=== PATIENT | male | born 1955 | race Caucasian/White ===

== ENCOUNTER 2018-02-24 10:04 | Inpatient (IN) | payer OTHER ==
[2018-02-24] MEDS ORDERED: IPRATROPIUM/ALBUTEROL (0.5MG/3MG) NEB INH ONE (10:38)
[2018-02-24] MEDS ORDERED: METHYLPREDNISOLONE PF 125MG/VIAL IVP ONE (10:38)
--- NOTE | 2018-02-24 11:42 | Emergency Department Record ---
History of Present Illness - General Chief Complaint: Shortness of breath Stated Complaint: SHORT OF BREATH Time Seen by Provider: 02/24/18 10:30 Source: Patient Mode of Arrival: Wheelchair Limitations: No limitations - History of Present Illness Initial Comments: pt is sob. he was recently hospitalized in [facility] for pnumonia. he got out and drove 14hrs home. he now has increasing sob. [facility] he denies new leg pain MD Complaint: Shortness of breath Onset/Timin -: Days(s) Severity: Mild Consistency: Constant Improves With: Nothing Worsens With: Nothing Known History Of: COPD, Recurrent pneumonia Context: Recent travel Associated Symptoms: Cough, Sputum production Treatments Prior to Arrival: None - Related Data Home Oxygen Therapy: No Allergies Allergy/AdvReac Type Severity Reaction Status Date / Time Penicillins Allergy Intermediate HIVES Unverified 10/08/16 13:29 ropinirole HCl [From Requip] AdvReac Intermediate too sedated Unverified 13:29 Travel Screening - Travel/Exposure Within Last 30 Days Have you traveled within the last 30 days?: No Review of Systems Reviewed: No additional complaints except as noted below Constitutional: Reports: As per HPI. Denies: Chills, Fever, Malaise, Night sweats, Weakness, Weight change Eyes: Reports: As per HPI. Denies: Eye discharge, Eye pain, Photophobia, Vision change ENT: Reports: As per HPI. Denies: Congestion, Dental pain, Ear pain, Epistaxis , Hearing loss, Throat pain Respiratory: Reports: As per HPI, Cough, Dyspnea, Wheezes. Denies: Hemoptysis, Stridor Cardiovascular: Reports: As per HPI. Denies: Arrhythmia, Chest pain, Dyspnea on exertion, Edema, Murmurs, Orthopnea, Palpitations, Paroxysmal nocturnal dyspnea, Rheumatic Fever, Syncope Endocrine: Reports: As per HPI. Denies: Fatigue, Heat or cold intolerance, Polydipsia, Polyuria Gastrointestinal: Reports: As per HPI. Denies: Abdominal pain, Constipation, Diarrhea, Hematemesis, Hematochezia, Melena, Nausea, Vomiting Genitourinary: Reports: As per HPI. Denies: Dysuria, Frequency, Hematuria, Incontinence, Retention, Testicular pain, Testicular mass, Urgency Musculoskeletal: Reports: As per HPI. Denies: Arthralgia, Back pain, Gout, Joint swelling, Myalgia, Neck pain Skin: Reports: As per HPI. Denies: Bruising, Change in color, Change in hair/ nails, Lesions, Pruritus, Rash Neurological: Reports: As per HPI. Denies: Abnormal gait, Confusion, Headache, Numbness, Paresthesias, Seizure, Tingling, Tremors, Vertigo, Weakness Psychiatric: Reports: As per HPI. Denies: Anxiety, Auditory hallucinations, Depression, Homicidal thoughts, Suicidal thoughts, Visual hallucinations Hematological/Lymphatic: Reports: As per HPI. Denies: Anemia, Blood Clots, Easy bleeding, Easy bruising, Swollen glands Past Medical History - SOCIAL HISTORY Smoking Status: Current every day smoker - RESPIRATORY Hx Respiratory Disorders: Yes Hx Bronchitis: Yes (yearly) Hx COPD: Yes Hx Pneumonia: Yes (yearly) Hx Sleep Apnea: Yes Hx of CPAP: No - CARDIOVASCULAR Hx Cardio Disorders: Yes Hx Cardiac Cath: Yes (2008, 2014) Hx Edema: Yes (BLE) Hx Heart Attack: Yes (found after stent placed when in for a stress test "pt. was unaware") Hx Hypertension: Yes Hx Vascular Disease: Yes (CELLULITIS) Hx Coronary Stent: Yes (2008) - NEURO Hx Neuro Disorders: Yes Hx Neuropathy: Yes (Bilateral feet) - GI Hx GI Disorders: Yes Hx Reflux: Yes (NO LONGER AN ISSUE) - Hx Genitourinary Disorders: Yes Hx Kidney Stones: Yes (in the past) Hx Prostate Problems: Yes (?BPH) - ENDOCRINE Hx Endocrine Disorders: Yes Hx Thyroid Disease: Yes - MUSCULOSKELETAL Hx Musculoskeletal Disorders: No - PSYCH Hx Psych Problems: Yes Hx Anxiety: Yes Hx Depression: Yes - HEMATOLOGY/ONCOLOGY Hx Hematology/Oncology Disorders: No Hx Clotting Problems: Yes (PLAVIX) Family Medical History Any Significant Family History?: Yes Hx Cancer: Brother/Sister Hx Diabetes: Mother Hx Heart Disease: Father *Heart Comment: of ID @ 62 Physical Exam - General General Appearance: Alert, Oriented x3, Cooperative, Mild distress - Head Head exam: Normal inspection - Eye Eye exam: Normal appearance, PERRL, EOMI Pupils: Normal accommodation - ENT ENT exam: Normal exam, Mucous membranes moist, Normal external ear exam, Normal orophraynx Ear exam: Normal external inspection. negative: External canal tenderness Nasal Exam: Normal inspection. negative: Discharge, Sinus tenderness Mouth exam: Normal external inspection, Tongue normal Teeth exam: Normal inspection. negative: Dental caries Throat exam: Normal inspection. negative: Tonsillar erythema, Tonsillar exudate - Neck Neck exam: Normal inspection, Full ROM. negative: Tenderness - Respiratory Respiratory exam: Decreased breath sounds, Respiratory distress, Wheezes - Cardiovascular Cardiovascular Exam: Normal rhythm, Normal heart sounds, Tachycardia - GI/Abdominal GI/Abdominal exam: Soft, Normal bowel sounds. negative: Tenderness - Rectal Rectal exam: Deferred - exam: Deferred - Extremities Extremities exam: Normal inspection, Full ROM, Normal capillary refill. negative: Tenderness - Back Back exam: Reports: Normal inspection, Full ROM. Denies: Muscle spasm, Rash noted, Tenderness - Neurological Neurological exam: Alert, CN II-XII intact, Normal gait, Oriented X3 - Psychiatric Psychiatric exam: Normal affect, Normal mood - Skin Skin exam: Dry, Intact, Normal color, Warm Course Vital Signs 02/24/18 02/24/18 10:08 11:03 Temperature 99.8 F H Pulse Rate 100 H Pulse Rate [ 94 H Pulse Ox Probe] Respiratory 22 20 Rate Blood Pressure 98/64 Blood Pressure 93/63 [Left Arm] Pulse Ox [address] - Reevaluation(s) Reevaluation #1: 02/24/18 12:36 d/w dr anderson Reevaluation #2: 02/24/18 12:42 pt left dept to let dog be picked up. he went without his oxygen [unknown to me ]. when he came back in his sats were 79-80 Disposition Disposition: Admit Clinical Impression: Acute exacerbation of COPD with asthma, Hypoxia Pneumonia Qualifiers: Pneumonia type: due to unspecified organism Laterality: bilateral Lung location : lower lobe of lung Qualified Code(s): J18.1 - Lobar pneumonia, unspecified organism Disposition: Still a Patient at [facility] Decision to Admit: Admit from ER Decision to Admit Date: 02/24/18 Decision to Admit Time: 12:36 Forms: Patient Portal Access Quality - Quality Measures Quality Measures: N/A - Blood Pressure Screening Does Patient Have Any of the Following: No Blood Pressure Classification: Normal BP Reading Systolic Measurement: 98 Diastolic Measurement: 64 Screening for High Blood Pressure: < Normal BP, F/U Not Required > [[id number]]
--- NOTE | 2018-02-24 13:42 | History & Physical ---
History of Present Illness - Date of Service Date of Service for History & Physical: 02/26/18 - History of Present Illness History of Present Illness: Ruben Pennington is a 63 y/o male transferred from PCP office to ED for hypoxia, fever and productive cough. He is a current every day smoker. About a month ago was treated for COPD exacerbation in [place] with Rocephin and Azithromycin, oxygen therapy, breathing treatments. Respiratory culture at that time grew strep pneumoniae. Had echo for hx CHF (results not available) BNP at that time was 297, troponin <0.01, CXR opacity left lung base questionable infiltrate. PMX includes COPD ( does not use home O2), MO While in the ED was hypotensive, afebrile (was febrile while at PCP office just prior to admit) with WBC 17.5. CO2 33, BNP 516, d-dimer was 0.57 CXR performed prior to transfer to ED with no acute infiltrates, there are bilateral increased densities to both lung bases R>L, similar to previous CXR. Will admit for IV antibiotics, oxygen supplementation, respiratory services. 02/24/18 1530- sitting at the side of bed comfortably, no obvious respiratory distress. Upon further questioning patient admits to having a CPAP at home but does not use because he removes it in his sleep. 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 He is unsure of why this is. Admits he is still smoking but has cut down to 1/2 ppd, is interested in quitting. Does not feel like he completely recovered from his hospitalization in [place] a month ago stating he was just anxious about returning home and "rushed it". States he lives in an environment he feels has a lot of mold. Mop Handle Assembler is Dr Brice, saw him last about a year ago. Reports since starting Entresto his blood pressure has been running low, 100's/40's. Has been asymptomatic at this level. States he is following a 64 oz fluid restriction at home and will gain weight readily if he takes in too much fluid in a day. Follows with a [facility] supervisor and has seen him about a year ago. Is hospitalized approx twice a year for COPD related complications. Travel Screening - Travel/Exposure Within Last 30 Days Have you traveled within the last 30 days?: No Review of Systems Constitutional: Reports: As per HPI. Denies: Chills, Fever, Malaise, Night sweats, Weakness, Weight change Eyes: Reports: As per HPI. Denies: Eye discharge, Eye pain, Photophobia, Vision change ENT: Reports: As per HPI. Denies: Congestion, Dental pain, Ear pain, Epistaxis , Hearing loss, Throat pain Respiratory: Reports: As per HPI, Cough, Dyspnea, Wheezes. Denies: Hemoptysis, Stridor Cardiovascular: Reports: As per HPI. Denies: Arrhythmia, Chest pain, Dyspnea on exertion, Edema, Murmurs, Orthopnea, Palpitations, Paroxysmal nocturnal dyspnea, Rheumatic Fever, Syncope Endocrine: Reports: As per HPI. Denies: Fatigue, Heat or cold intolerance, Polydipsia, Polyuria Gastrointestinal: Reports: As per HPI. Denies: Abdominal pain, Constipation, Diarrhea, Hematemesis, Hematochezia, Melena, Nausea, Vomiting Genitourinary: Reports: As per HPI. Denies: Dysuria, Frequency, Hematuria, Incontinence, Retention, Testicular pain, Testicular mass, Urgency Musculoskeletal: Reports: As per HPI. Denies: Arthralgia, Back pain, Gout, Joint swelling, Myalgia, Neck pain Skin: Reports: As per HPI. Denies: Bruising, Change in color, Change in hair/ nails, Lesions, Pruritus, Rash Neurological: Reports: As per HPI. Denies: Abnormal gait, Confusion, Headache, Numbness, Paresthesias, Seizure, Tingling, Tremors, Vertigo, Weakness Psychiatric: Reports: As per HPI. Denies: Anxiety, Auditory hallucinations, Depression, Homicidal thoughts, Suicidal thoughts, Visual hallucinations Hematological/Lymphatic: Reports: As per HPI. Denies: Anemia, Blood Clots, Easy bleeding, Easy bruising, Swollen glands Past Medical History - SOCIAL HISTORY Smoking Status: Current every day smoker - RESPIRATORY Hx Respiratory Disorders: Yes Hx Bronchitis: Yes (yearly) Hx COPD: Yes Hx Pneumonia: Yes (yearly) Hx Sleep Apnea: Yes Hx of CPAP: No - CARDIOVASCULAR Hx Cardio Disorders: Yes Hx Cardiac Cath: Yes (2008, 2014) Hx Edema: Yes (BLE) Hx Heart Attack: Yes (found after stent placed when in for a stress test "pt. was unaware") Hx Hypertension: Yes Hx Vascular Disease: Yes (CELLULITIS) Hx Coronary Stent: Yes (2008) - NEURO Hx Neuro Disorders: Yes Hx Neuropathy: Yes (Bilateral feet) - GI Hx GI Disorders: Yes Hx Reflux: Yes (NO LONGER AN ISSUE) - Hx Genitourinary Disorders: Yes Hx Kidney Stones: Yes (in the past) Hx Prostate Problems: Yes (?BPH) - ENDOCRINE Hx Endocrine Disorders: Yes Hx Thyroid Disease: Yes - MUSCULOSKELETAL Hx Musculoskeletal Disorders: No - PSYCH Hx Psych Problems: Yes Hx Anxiety: Yes Hx Depression: Yes - HEMATOLOGY/ONCOLOGY Hx Hematology/Oncology Disorders: No Hx Clotting Problems: Yes (PLAVIX) Family Medical History Any Significant Family History?: Yes Hx Cancer: Brother/Sister Hx Diabetes: Mother Hx Heart Disease: Father *Heart Comment: of [place] @ 62 H&P Meds/Allergies - Allergies Allergies: Allergies Allergy/AdvReac Type Severity Reaction Status Date / Time Penicillins Allergy Intermediate HIVES Unverified 10/08/16 13:29 ropinirole HCl [From Requip] AdvReac Intermediate too sedated Unverified 13:29 - Home Medications Home Medications Medication Instructions Recorded Confirmed Last Taken Albuterol Sulfate 0.083% [Neb] 2.5 mg INH TID PRN 02/24/18 02/24/18 Unknown Brovana 15 mcg INH BID 02/24/18 02/24/18 Unknown Nitroglycerin 0.4MG [Nitrostat 0.4 mg SL Q5MIN PRN 02/24/18 02/24/18 Unknown 0.4MG] Sacubitril/Valsartan [Entresto 97 1 each PO BID 02/24/18 02/24/18 Unknown mg-103 mg Tablet] Tiotropium Lutz [Spiriva] 18 mcg INH DAILY 02/24/18 02/24/18 Unknown Previous Rx's Medication Instructions Recorded Acetaminophen [Tylenol 500Mg Tab] 1,000 mg PO Q6H PRN tablet 02/26/18 Albuterol Sulfate 0.083% [Neb] 2.5 mg INH RESP.Q4H PRN 02/26/18 nebulization solution Azithromycin 250 mg PO DAILY #5 tablet 02/26/18 Guaifenesin [Mucinex] 1,200 mg PO BID #60 tab.er.12h 02/26/18 Polyethylene Glycol 3350 [Miralax] 17 gm PO DAILY #30 packet 02/26/18 Prednisone [Prednisone 20Mg] 40 mg PO DAILY #10 tab 02/26/18 Physical Exam - Vital Signs Vital Signs: Vital Signs - Last 24 Hrs Temp Pulse Pulse Resp BP BP Pulse Ox 02/24/18 13:07 98.4 F 90 20 87/67 95 02/24/18 11:03 94 H 20 93/63 93 L 02/24/18 10:08 99.8 F H 100 H 22 98/64 89 L - General General Appearance: Alert, Oriented x3, Cooperative Limitations: No limitations - Head Head exam: Normal inspection - Eye Eye exam: Normal appearance, PERRL, EOMI Pupils: Normal accommodation - ENT ENT exam: Normal exam, Mucous membranes moist, Normal external ear exam, Normal orophraynx Ear exam: Normal external inspection. negative: External canal tenderness Nasal Exam: Normal inspection. negative: Discharge, Sinus tenderness Mouth exam: Normal external inspection, Tongue normal Teeth exam: Normal inspection. negative: Dental caries Throat exam: Normal inspection. negative: Tonsillar erythema, Tonsillar exudate - Neck Neck exam: Normal inspection, Full ROM. negative: Tenderness - Respiratory Respiratory exam: Decreased breath sounds, Rhonchi (scattered throughout), Wheezes - Cardiovascular Cardiovascular Exam: Normal rhythm, Normal heart sounds, Tachycardia - GI/Abdominal GI/Abdominal exam: Soft, Normal bowel sounds. negative: Tenderness - Rectal Rectal exam: Deferred - exam: Deferred - Extremities Extremities exam: Normal inspection, Full ROM, Normal capillary refill. negative: Pedal edema, Tenderness - Back Back exam: Reports: Normal inspection, Full ROM. Denies: Muscle spasm, Rash noted, Tenderness - Neurological Neurological exam: Alert, CN II-XII intact, Normal gait, Oriented X3 - Psychiatric Psychiatric exam: Normal affect, Normal mood - Skin Skin exam: Dry, Intact, Normal color, Warm Results - Labs Labs Last 24 Hours: Laboratory Results - last 24 hr 02/24/18 10:50 D-Dimer 0.57 - Imaging and Cardiology Chest x-ray Status: Report reviewed (bibasilar densities, unchange from previous , no effusion or infiltrate) VTE H&P Assessment - Risk for VTE Risk for VTE: Yes Risk Level: Moderate Risk Assessment Date: 02/24/18 Risk Assessment Time: 17:44 VTE Orders Placed or Will Be Placed: Yes Plan - Inpatient Certification Inpatient Certification: Admit to inpatient care: Based on my medical assessment, after consideration of patient's risk factors (age, co-morbidities and patient presenting symptoms and acuity), I expect that this patient will remain in the hospital greater than or equal to two midnights and that the services needed warrant inpatient care because: Patient Risk Factors: [recurrent exacerbation COPD, hypoxia] Estimated length of stay: [48-72 hours] The patient may reasonably be expected to be discharged or transferred to a hospital within 96 hours after admission to [facility]. Services needed: nursing, respiratory, IV antibiotics[] Post hospital care (if known): [] I certify that my determination is in accordance with my understanding of Medicare requirements for reasonable and necessary inpatient services. 02/24/18 14:22 - Detailed Diagnosis and Plan (1) COPD exacerbation Status: Acute Base Code: J44.1 - CHRONIC OBSTRUCTIVE PULMONARY DISEASE W ( ACUTE) EXACERBATION Comment: 02/26/18 - CXR unchanged from previous, no acute infiltrate, bibasilar densities unchanged - Rocephin 1gm Q12 hours, Azithromycin 500mg IV Q24 hours x 2 days then change to PO - Blood cultures pending - 12 lead EKG unchanged from previous - Troponin negative x 2 - Solumedrol 125mg decreased to Solumedrol 60mg IVP daily and convert to Prednisone PO at time of discharge - Duoneb Q 3hr WA - Continue home COPD maintenance medications - O2 to keep SPO2>88% - Advised to quit smoking - Follow up with [facility] regarding reevaluation of CPAP fittings - Qualifies for home O2 (2) Hypoxia Status: Acute Base Code: R09.02 - HYPOXEMIA Comment: 02/26/18 - Oxygen to keep SPO2>88% - Hypoxic prior to ED visit - SPO2 92% RM, did drop to 86% with ambulaation - Home O2 ordered (3) Hypotension Status: Acute Base Code: I95.9 - HYPOTENSION, UNSPECIFIED Comment: 02/26/18 - BP 87/67 in ED - May represent slight dehydration but also induced by Entresto use - Asymptomatic - Fluid restriction 64 oz/24 hours (4) DVT prophylaxis Status: Acute Base Code: [id number] - Comment: 02/26/18 - Lovenox 40mg QD (5) Full code status Status: Acute Base Code: Z78.9 - OTHER SPECIFIED HEALTH STATUS Comment: (6) CHF (congestive heart failure) Status: Acute Base Code: I50.9 - HEART FAILURE, UNSPECIFIED Comment: 02/26/18 - Entresto - 64 oz fluid restriction - NO complications while inpatient (7) Nicotine dependence Status: Acute Base Code: F17.200 - NICOTINE DEPENDENCE, UNSPECIFIED, UNCOMPLICATED Comment: 02/26/18 - Nicotine patch 14mg
[2018-02-24] MEDS ORDERED: ACETAMINOPHEN 500 MG TABLET PO PRN (13:50)
[2018-02-24] MEDS ORDERED: ALBUTEROL SULFATE (0.083%) 2.5 MG/3 ML NEB INH PRN (13:50)
[2018-02-24] MEDS ORDERED: IPRATROPIUM/ALBUTEROL (0.5MG/3MG) NEB INH PRN (13:50)
[2018-02-24] MEDS: CEFTRIAXONE 1GM/50ML BAG 1 GM/50 ML BAG IVPB SCH ×2 (14:43→23:54)
[2018-02-24] MEDS: IPRATROPIUM/ALBUTEROL (0.5MG/3MG) NEB INH SCH ×3 (14:44→22:06)
[2018-02-24] MEDS ORDERED: 0.9 % SODIUM CHLORIDE 1000ML 1,000 ML IV PRN (15:03)
[2018-02-24] MEDS: AZITHROMYCIN 500 MG in 0.9 % SODIUM CHLORIDE 250ML 250 ML IVPB SCH (15:52)
[2018-02-24] MEDS: NICOTINE14 MG/24 HOUR PATCH TD SCH (16:10)
[2018-02-24] MEDS: HYDROCHLOROTHIAZIDE 25 MG TABLET PO SCH (23:55)
[2018-02-24] MEDS: CARVEDILOL 12.5 MG TABLET PO SCH (23:55)
[2018-02-24] MEDS: ENTRESTO PO SCH (23:56)
[2018-02-25] MEDS: IPRATROPIUM/ALBUTEROL (0.5MG/3MG) NEB INH SCH ×6 (02:24→21:44)
[2018-02-25] MEDS: LEVOTHYROXINE SODIUM 50 MCG TABLET PO SCH (06:43)
[2018-02-25] MEDS: ENOXAPARIN 40 MG/0.4 ML SYR SQ SCH (09:16)
[2018-02-25] MEDS: CEFTRIAXONE 1GM/50ML BAG 1 GM/50 ML BAG IVPB SCH ×2 (09:16→21:36)
[2018-02-25] MEDS: VENLAFAXINE ER 75 MG CAPSULE PO SCH (09:16)
[2018-02-25] MEDS: CARVEDILOL 12.5 MG TABLET PO SCH ×2 (09:16→21:36)
[2018-02-25] MEDS: HYDROCHLOROTHIAZIDE 25 MG TABLET PO SCH ×2 (09:17→21:36)
[2018-02-25] MEDS: TAMSULOSIN HCL 0.4 MG CAP.ER.24H PO SCH (09:17)
[2018-02-25] MEDS: EZETIMIBE 10 MG TABLET PO SCH (09:17)
[2018-02-25] MEDS: ENTRESTO PO SCH ×2 (09:17→21:37)
[2018-02-25] MEDS: CLOPIDOGREL 75MG TABLET PO SCH (09:17)
[2018-02-25] MEDS: METHYLPREDNISOLONE PF 125MG/VIAL IVP SCH (09:24)
[2018-02-25] MEDS ORDERED: METHYLPREDNISOLONE PF 125MG/VIAL IVP SCH (10:00)
--- NOTE | 2018-02-25 10:10 | Physician Progress Note ---
Subjective - Date Date of Physician Progress Note: 02/25/18 - Subjective Subjective Comment: No new nursing concerns overnight. Patient reports has not moved bowels in a couple days. Shortness of breath is improved from yesterday but does not feel his breathing is at baseline. Is tolerating antibiotics and steroids Objective - Vital Signs Vital Signs: Vital Signs - Last 24 Hrs Temp Pulse Pulse Resp BP BP Pulse Ox 02/25/18 09:58 97 H 24 97 02/25/18 06:18 84 16 97 02/25/18 06:00 97.8 F 91 H 16 114/76 96 02/25/18 02:24 92 H 20 95 02/25/18 02:00 98.3 F 90 16 120/67 94 L 02/24/18 22:06 100 H 20 93 L 02/24/18 22:00 97.8 F 98 H 18 151/93 93 L 02/24/18 18:09 97 H 18 94 L 02/24/18 18:07 89 20 02/24/18 18:00 98.9 F 89 18 137/98 93 L 02/24/18 14:48 93 H 20 93 L 02/24/18 14:44 93 H 20 93 L 02/24/18 14:00 98.9 F 89 18 102/55 91 L 02/24/18 13:07 98.4 F 90 20 87/67 95 02/24/18 11:03 94 H 20 93/63 93 L 02/24/18 10:08 99.8 F H 100 H 22 98/64 89 L - General General Appearance: Alert, Oriented x3, Cooperative Limitations: No limitations - Head Head exam: Normal inspection - Eye Eye exam: Normal appearance, PERRL, EOMI Pupils: Normal accommodation - ENT ENT exam: Normal exam, Mucous membranes moist, Normal external ear exam, Normal orophraynx Ear exam: Normal external inspection. negative: External canal tenderness Nasal Exam: Normal inspection. negative: Discharge, Sinus tenderness Mouth exam: Normal external inspection, Tongue normal Teeth exam: Normal inspection. negative: Dental caries Throat exam: Normal inspection. negative: Tonsillar erythema, Tonsillar exudate - Neck Neck exam: Normal inspection, Full ROM. negative: Tenderness - Respiratory Respiratory exam: Decreased breath sounds (improved air exchange today), Rhonchi (scattered throughout), Wheezes (improved from yesterday) - Cardiovascular Cardiovascular Exam: Normal rhythm, Normal heart sounds, Tachycardia - GI/Abdominal GI/Abdominal exam: Soft, Normal bowel sounds. negative: Tenderness - Rectal Rectal exam: Deferred - exam: Deferred - Extremities Extremities exam: Normal inspection, Full ROM, Normal capillary refill. negative: Pedal edema, Tenderness - Back Back exam: Reports: Normal inspection, Full ROM. Denies: Muscle spasm, Rash noted, Tenderness - Neurological Neurological exam: Alert, CN II-XII intact, Normal gait, Oriented X3 - Psychiatric Psychiatric exam: Normal affect, Normal mood - Skin Skin exam: Dry, Intact, Normal color, Warm Assessment and Plan - Assessment and Plan (1) COPD exacerbation Current Visit: No Status: Acute Base Code: J44.1 - CHRONIC OBSTRUCTIVE PULMONARY DISEASE W (ACUTE) EXACERBATION Comment: 02/25/18 - CXR unchanged from previous, no acute infiltrate, bibasilar densities unchanged - Rocephin 1gm Q12 hours, Azithromycin 500mg IV Q24 hours x 2 days then change to PO - Blood cultures pending - 12 lead EKG - Troponin negative x 2 - Solumedrol 125mg decreased to Solumedrol 60mg IVP daily and convert to Prednisone PO at time of discharge - Duoneb Q 3hr WA - Continue home COPD maintenance medications - O2 to keep SPO2>88% - Advised to quit smoking - Will need home O2 qualifier prior to discharge and follow up with [facility] regarding reevaluation of CPAP fittings (2) Hypoxia Current Visit: Yes Status: Acute Base Code: R09.02 - HYPOXEMIA Comment: 02/25/18 - Oxygen to keep SPO2>88% - Hypoxic prior to ED visit (3) Hypotension Current Visit: Yes Status: Acute Base Code: I95.9 - HYPOTENSION, UNSPECIFIED Comment: 02/25/18 - BP 87/67 in ED - May represent slight dehydration but also induced by Entresto use - Asymptomatic - Fluid restriction 64 oz/24 hours (4) CHF (congestive heart failure) Current Visit: Yes Status: Acute Base Code: I50.9 - HEART FAILURE, UNSPECIFIED Comment: - Entresto - 64 oz fluid restriction (5) Nicotine dependence Current Visit: Yes Status: Acute Base Code: F17.200 - NICOTINE DEPENDENCE, UNSPECIFIED, UNCOMPLICATED Comment: 02/25/18 - Nicotine patch 14mg (6) DVT prophylaxis Current Visit: Yes Status: Acute Base Code: [id number] - Comment: 02/25/18 - Lovenox 40mg QD (7) Full code status Current Visit: Yes Status: Acute Base Code: Z78.9 - OTHER SPECIFIED HEALTH STATUS Comment: 02/25/18 Results - Labs Labs Last 24 Hours: Laboratory Results - last 24 hr 02/24/18 02/24/18 02/24/18 09:40 10:50 14:37 D-Dimer 0.57 Troponin T < 0.010 < 0.010 DVT/PE Assessment - Risk for VTE Risk for VTE: No Risk Level: Moderate Risk Assessment Date: 02/24/18 Risk Assessment Time: 17:44 VTE Orders Placed or Will Be Placed: Yes - Active Medicaitons Current Medications: Current Medications Acetaminophen (Tylenol 500mg Tab) 1,000 mg PO Q6H PRN PRN Reason: PAIN - MILD(1-4)/FEVER Albuterol Sulfate () 2.5 mg INH RESP.Q4H PRN PRN Reason: DIFFICULTY IN BREATHING Albuterol/Ipratropium (Duoneb) 3 ml INH RESP.Q4H.[facility] Last Admin: 02/25/18 09:57 Dose: 3 ml Azithromycin (Zithromax) 500 mg PO DAILY [facility] Carvedilol (Coreg) 25 mg PO BID [facility] Last Admin: 02/25/18 09:16 Dose: 25 mg Clopidogrel Bisulfate (Plavix) 75 mg PO DAILY [facility] Last Admin: 02/25/18 09:17 Dose: 75 mg Ezetimibe (Zetia) 10 mg PO DAILY [facility] Last Admin: 02/25/18 09:17 Dose: 10 mg Enoxaparin Sodium (Lovenox) 40 mg SQ DAILY [facility] Last Admin: 02/25/18 09:16 Dose: 40 mg Hydrochlorothiazide (Hctz 25mg) 25 mg PO BID [facility] Last Admin: 02/25/18 09:17 Dose: 25 mg CEFTRIAXONE 1GM/50ML BAG (Ceftriaxone 1 Gm-D5w Bag) 1 gm in 50 mls @ 100 mls/ hr IVPB Q12HR [facility] Last Admin: 02/25/18 09:16 Dose: 100 mls/hr Azithromycin 500 mg/ Sodium (Chloride) 250 mls @ 250 mls/hr IVPB Q24H [facility] Stop: 02/25/18 15:59 Last Infusion: 08/03/18 17:40 Dose: Infused Levothyroxine Sodium (Synthroid) 50 mcg PO DAILYTHY [facility] Last Admin: 02/25/18 06:43 Dose: 50 mcg Methylprednisolone Sodium Succinate (Solu-Medrol) 60 mg IVP DAILY [facility] Last Admin: 02/25/18 09:24 Dose: 60 mg Nicotine (Nicotine 14mg) 1 patch TD Q24H [facility] Last Admin: 02/24/18 16:10 Dose: 1 patch Patient Own Med: Entresto (Sacubitril -Valsartan) 97-103 Mg 1 each PO BID [facility] Last Admin: 02/25/18 09:17 Dose: 1 each Polyethylene Glycol (Miralax) 17 gm PO DAILY [facility] Tamsulosin HCl (Flomax) 0.4 mg PO DAILY [facility] Last Admin: 02/25/18 09:17 Dose: 0.4 mg Venlafaxine HCl (Effexor Xr) 225 mg PO DAILY [facility] Last Admin: 02/25/18 09:16 Dose: 225 mg
[2018-02-25] MEDS: POLYETHYLENE GLY 17 GM PACKET PO SCH (10:58)
[2018-02-25] MEDS: NICOTINE14 MG/24 HOUR PATCH TD SCH ×2 (13:41→16:26)
[2018-02-25] MEDS: AZITHROMYCIN 500 MG in 0.9 % SODIUM CHLORIDE 250ML 250 ML IVPB SCH (13:55)
[2018-02-25] MEDS ORDERED: DIPHENHYDRAMINE HCL 25 MG CAPSULE PO PRN (22:00)
[2018-02-26] MEDS: IPRATROPIUM/ALBUTEROL (0.5MG/3MG) NEB INH SCH ×4 (01:26→14:23)
[2018-02-26] MEDS: LEVOTHYROXINE SODIUM 50 MCG TABLET PO SCH (06:56)
[2018-02-26] MEDS ORDERED: AZITHROMYCIN 500 MG TABLET PO SCH (10:00)
[2018-02-26] MEDS: CARVEDILOL 12.5 MG TABLET PO SCH (10:04)
[2018-02-26] MEDS: POLYETHYLENE GLY 17 GM PACKET PO SCH (10:04)
[2018-02-26] MEDS: CEFTRIAXONE 1GM/50ML BAG 1 GM/50 ML BAG IVPB SCH (10:04)
[2018-02-26] MEDS: ENOXAPARIN 40 MG/0.4 ML SYR SQ SCH (10:04)
[2018-02-26] MEDS: CLOPIDOGREL 75MG TABLET PO SCH (10:05)
[2018-02-26] MEDS: VENLAFAXINE ER 75 MG CAPSULE PO SCH (10:05)
[2018-02-26] MEDS: HYDROCHLOROTHIAZIDE 25 MG TABLET PO SCH (10:05)
[2018-02-26] MEDS: TAMSULOSIN HCL 0.4 MG CAP.ER.24H PO SCH (10:05)
[2018-02-26] MEDS: METHYLPREDNISOLONE PF 125MG/VIAL IVP SCH (10:06)
[2018-02-26] MEDS: EZETIMIBE 10 MG TABLET PO SCH (10:06)
--- NOTE | 2018-02-26 10:06 | Discharge Summary ---
Providers Discharge Summary Date: 02/26/18 Date of admission: 02/24/18 13:11 Expected Date of Discharge: 02/26/18 Attending physician: KALEB MEJIA Primary care physician: KALEB MEJIA Physical Exam - Vital Signs Vital Signs: Vital Signs - Last 24 Hrs Temp Pulse Pulse Pulse Resp BP Pulse Ox 02/26/18 06:19 80 16 93 L 02/26/18 06:00 98.1 F 88 16 122/88 92 L 02/26/18 02:00 90 15 121/84 98 02/26/18 01:26 86 20 90 L 02/25/18 22:25 97.7 F 02/25/18 21:45 90 20 118/77 93 L 02/25/18 21:44 88 18 93 L 02/25/18 17:47 84 16 95 02/25/18 17:10 98.1 F 88 18 132/70 91 L 02/25/18 14:00 98.7 F 89 18 100/85 91 L 02/25/18 13:58 90 18 95 - General General Appearance: Alert, Oriented x3, Cooperative Limitations: No limitations - Head Head exam: Normal inspection - Eye Eye exam: Normal appearance, PERRL, EOMI Pupils: Normal accommodation - ENT ENT exam: Normal exam, Mucous membranes moist, Normal external ear exam, Normal orophraynx Ear exam: Normal external inspection. negative: External canal tenderness Nasal Exam: Normal inspection. negative: Discharge, Sinus tenderness Mouth exam: Normal external inspection, Tongue normal Teeth exam: Normal inspection. negative: Dental caries Throat exam: Normal inspection. negative: Tonsillar erythema, Tonsillar exudate - Neck Neck exam: Normal inspection, Full ROM. negative: Tenderness - Respiratory Respiratory exam: Decreased breath sounds (improved air exchange today), Rhonchi (scattered throughout), Wheezes (improved from yesterday) - Cardiovascular Cardiovascular Exam: Normal rhythm, Normal heart sounds, Tachycardia - GI/Abdominal GI/Abdominal exam: Soft, Normal bowel sounds. negative: Tenderness - Rectal Rectal exam: Deferred - exam: Deferred - Extremities Extremities exam: Normal inspection, Full ROM, Normal capillary refill. negative: Pedal edema, Tenderness - Back Back exam: Reports: Normal inspection, Full ROM. Denies: Muscle spasm, Rash noted, Tenderness - Neurological Neurological exam: Alert, CN II-XII intact, Normal gait, Oriented X3 - Psychiatric Psychiatric exam: Normal affect, Normal mood - Skin Skin exam: Dry, Intact, Normal color, Warm Hospitalization - Hospitalization Admission Diagnosis: acute exacerbation of copd w hypoxia and pneumonia - Problem List/Discharge Diagnosis (1) COPD exacerbation Status: Acute Base Code: J44.1 - CHRONIC OBSTRUCTIVE PULMONARY DISEASE W ( ACUTE) EXACERBATION Comment: 02/26/18 - CXR unchanged from previous, no acute infiltrate, bibasilar densities unchanged - Rocephin 1gm Q12 hours, Azithromycin 500mg IV Q24 hours x 2 days then change to PO - Blood cultures pending - 12 lead EKG unchanged from previous - Troponin negative x 2 - Solumedrol 125mg decreased to Solumedrol 60mg IVP daily and convert to Prednisone PO at time of discharge - Duoneb Q 3hr WA - Continue home COPD maintenance medications - O2 to keep SPO2>88% - Advised to quit smoking - Follow up with [facility] regarding reevaluation of CPAP fittings - Qualifies for home O2 (2) Hypoxia Status: Acute Base Code: R09.02 - HYPOXEMIA Comment: 02/26/18 - Oxygen to keep SPO2>88% - Hypoxic prior to ED visit - SPO2 92% RM, did drop to 86% with ambulaation - Home O2 ordered (3) Hypotension Status: Acute Base Code: I95.9 - HYPOTENSION, UNSPECIFIED Comment: 02/26/18 - BP 87/67 in ED - May represent slight dehydration but also induced by Entresto use - Asymptomatic - Fluid restriction 64 oz/24 hours (4) CHF (congestive heart failure) Status: Acute Base Code: I50.9 - HEART FAILURE, UNSPECIFIED Comment: 02/26/18 - Entresto - 64 oz fluid restriction - NO complications while inpatient (5) Nicotine dependence Status: Acute Base Code: F17.200 - NICOTINE DEPENDENCE, UNSPECIFIED, UNCOMPLICATED Comment: 02/26/18 - Nicotine patch 14mg (6) DVT prophylaxis Status: Acute Base Code: BJW2824 - Comment: 02/26/18 - Lovenox 40mg QD (7) Full code status Status: Acute Base Code: Z78.9 - OTHER SPECIFIED HEALTH STATUS Comment: - Hospitalization Course Disposition: Home, Self-Care Hospital Course: Ruben Pennington is a 63 y/o male transferred from PCP office to ED for hypoxia, fever and productive cough. He is a current every day smoker. About a month ago was treated for COPD exacerbation in [place] with Rocephin and Azithromycin, oxygen therapy, breathing treatments. Respiratory culture at that time grew strep pneumoniae. Had echo for hx CHF (results not available) BNP at that time was 297, troponin <0.01, CXR opacity left lung base questionable infiltrate. PMX includes COPD ( does not use home O2), AL While in the ED was hypotensive, afebrile (was febrile while at PCP office just prior to admit) with WBC 17.5. CO2 33, BNP 516, d-dimer was 0.57 CXR performed prior to transfer to ED with no acute infiltrates, there are bilateral increased densities to both lung bases R>L, similar to previous CXR. Will admit for IV antibiotics, oxygen supplementation, respiratory services. 02/24/18 1530- sitting at the side of bed comfortably, no obvious respiratory distress. Upon further questioning patient admits to having a CPAP at home but does not use because he removes it in his sleep. 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 He is unsure of why this is. Admits he is still smoking but has cut down to 1/2 ppd, is interested in quitting. Does not feel like he completely recovered from his hospitalization in [place] a month ago stating he was just anxious about returning home and "rushed it". States he lives in an environment he feels has a lot of mold. Solution Consultant is Dr Brice, saw him last about a year ago. Reports since starting Entresto his blood pressure has been running low, 100's/40's. Has been asymptomatic at this level. States he is following a 64 oz fluid restriction at home and will gain weight readily if he takes in too much fluid in a day. Follows with a [facility] and has seen him about a year ago. Is hospitalized approx twice a year for COPD related complications. 02/26/18- responded well to antibiotics and steroids. Had significant improvement in shortness of breath and felt back to baseline at time of discharge. He was strongly advised to stop smoking as this is the trigger for his recurrent hospitalizations for COPD related complications. Did start nicotine patch. Does qualify for home O2. Procedures: Cardiology Procedures 02/24/18 14:11 EKG NOW Condition at Discharge: (2) Stable Discharge Medications - Discharge Medications Prescriptions: Azithromycin 250 mg PO DAILY #5 tablet Guaifenesin [Mucinex] 1,200 mg PO BID #60 tab.er.12h Polyethylene Glycol 3350 [Miralax] 17 gm PO DAILY #30 packet Prednisone [Prednisone 20Mg] 40 mg PO DAILY #10 tab Home Medications: Ambulatory Orders Multivitamin [Multi-Vitamin Daily] 1 each PO DAILY 09/24/14 [Last Taken 3 Days Ago ~09/21/14] Albuterol Sulfate 0.083% [Neb] 2.5 mg INH TID PRN 02/24/18 [Last Taken Unknown] Brovana 15 mcg INH BID 02/24/18 [Last Taken Unknown] Nitroglycerin 0.4MG [Nitrostat 0.4MG] 0.4 mg SL Q5MIN PRN 02/24/18 [Last Taken Unknown] Sacubitril/Valsartan [Entresto 97 mg-103 mg Tablet] 1 each PO BID 02/24/18 [ Last Taken Unknown] Tiotropium Coram [Spiriva] 18 mcg INH DAILY 02/24/18 [Last Taken Unknown] Acetaminophen [Tylenol 500Mg Tab] 1,000 mg PO Q6H PRN tablet 02/26/18 [Last Taken Unknown] Albuterol Sulfate 0.083% [Neb] 2.5 mg INH RESP.Q4H PRN nebulization solution [Last Taken Unknown] Azithromycin 250 mg PO DAILY #5 tablet 02/26/18 [Last Taken Unknown] Guaifenesin [Mucinex] 1,200 mg PO BID #60 tab.er.12h 02/26/18 [Last Taken Unknown] Polyethylene Glycol 3350 [Miralax] 17 gm PO DAILY #30 packet 02/26/18 [Last Taken Unknown] Prednisone [Prednisone 20Mg] 40 mg PO DAILY #10 tab 02/26/18 [Last Taken Unknown ] Discharge Plan - Discharge Instructions Activity at Discharge: Increase Activity as Tolerated, Other (Wear O2 with ambulation and at night) Instructions: Using Oxygen at Home (DC), COPD (Chronic Obstructive Pulmonary Disease) (DC), Air Travel With Oxygen (GEN), Fluid Restriction (DC), Pneumonia ( DC), How Your Lungs Work (DC), Nutrition Guidelines for People with COPD (DC) Additional Instructions: 2 Activity: up as tolerated 2 Diet: 2 Liter fluid restriction, low salt, low fat diet 2 Consults: [] 2 Follow Up: [Follow up with primary care in 5-7 days] 2 Dressing/Wound Care: (Type) (Change) 2 Additional: [Continue home medications New medications prednisone as directed, start taking medication tomorrow Azithromycin as directed, start taking medication tomorrow mucinex as directed, please start taking this as soon as possible Miralax as directed, last dose today Please continue home oxygen as directed and wear CPAP at night Return to the emergency room with any new or worsening symptoms] Quality Measures - Quality Measures Quality Measures: Coronary Artery Disease: Antiplatelet Therapy, Documentation of Current Medications in Medical Record, Heart Failure, Screening for High Blood Pressure and F/U Documented - Current Medications Quality Measure: Measure #130: Documentation of Current Medications Documentation of Current Medications: <Current Medications Documented/Reviewed> [[id number]] - Blood Pressure Screening Quality Measure: Screening for High Blood Pressure and Follow-Up Documented Does Patient Have Any of the Following: No Blood Pressure Classification: Normal BP Reading Systolic Measurement: 98 Diastolic Measurement: 64 Screening for High Blood Pressure: < Normal BP, F/U Not Required > [C7106] - Coronary Artery Disease Quality Measure: Measure #6: Coronary Artery Disease (CAD) Antiplatelet Therapy: <ASA or clopidogrel prescribed> [2630P] - Heart Failure (DARI/ARB Therapy) Quality Measure: Heart Failure Left Ventricular Systolic Function: Unknown DARI Inhibitor or ARB Therapy for LVSD: Not Eligible - Heart Failure (Beta-sallie Therapy) Quality Measure: Heart Failure Left Ventricular Systolic Function: Unknown Beta-Sallie Therapy for LVEF < 40%: Not Eligible - Elder Abuse Suspicion Index EASI Reference Information: Estefany WEST, Jaye C, Zeb D, Tomasz Rojas.Development and validation of a tool to assist physicians identification of elder abuse: The Elder Abuse Suspicion Index (EASI ). Journal of Elder Abuse and Neglect, 2008; 20 (3): 276-300.
[2018-02-26] MEDS: ENTRESTO PO SCH (10:11)
[2018-02-26] MEDS: NICOTINE14 MG/24 HOUR PATCH TD SCH (14:30)
== END 2018-02-26 14:43 | disposition home or self-care (01) | DRG 190 ==
LOC: ER 10:04 → MEDSURG 13:11
PROVIDERS: ADMIT Internal Medicine; ATTEND Internal Medicine
DX: J44.1 Chronic obstructive pulmonary disease with (acute) exacerbation (principal); J18.9 Pneumonia, unspecified organism; R09.02 Hypoxemia; I95.9 Hypotension, unspecified; I50.9 Heart failure, unspecified; I10 Essential (primary) hypertension; I25.2 Old myocardial infarction; R60.9 Edema, unspecified; G62.9 Polyneuropathy, unspecified; J42 Unspecified chronic bronchitis; I25.10 Atherosclerotic heart disease of native coronary artery without angina pectoris; R05 Cough; Z79.899 Other long term (current) drug therapy; Z51.81 Encounter for therapeutic drug level monitoring; F17.210 Nicotine dependence, cigarettes, uncomplicated; Z95.5 Presence of coronary angioplasty implant and graft; G47.30 Sleep apnea, unspecified
CPT/HCPCS: 71046; 80053; 83880; 84484; 85025; 85379; 93005; 94618; 94640; 94760; 94761; 96374; 99223; 99233; 99239; 99285; J0456; J0696; J1650; J2930; J7050

== ENCOUNTER 2019-06-05 07:48 | Day surgery (SDC) | payer MEDICARE, OTHER ==
[~2019-06-05 07:48] MED LIST: ACETAMINOPHEN 1,000 MG/100 ML BTL IVPB ONE
[2019-06-05] MEDS ORDERED: MIDAZOLAM HCL 2MG/2ML VIAL IV ONE (07:49)
[2019-06-05] MEDS ORDERED: LIDOCAINE 2% MDV (20MG/ML) 20ML VIAL IV ONE (07:49)
[2019-06-05] MEDS ORDERED: PROPOFOL 10 MG/ML VIAL IV ONE (07:49)
[2019-06-05] MEDS ORDERED: FENTANYL CITRATE/PF (PACU) 50 MCG/ML VIAL IV ONE (07:49)
[2019-06-05 08:16] LABS: BLOOD UREA NITROGEN 20 mg/dL (8-23); CREATININE 0.9 mg/dL (0.7-1.2); EST GLOMERULAR FILTRATION RATE > 60 mL/min; GLUCOSE,RANDOM 125 mg/dL (74-109)
[2019-06-05] MEDS ORDERED: RINGERS SOLUTION,LACTATED 1,000 ML IV ONE (10:19)
[2019-06-05] MEDS ORDERED: LIDOCAINE 1% W/EPI 1:200,000 MPF 30ML SQ ONE (10:39)
--- NOTE | 2019-06-06 08:51 | Operative Note ---
DATE OF SURGERY: 06/05/2019 SURGEON: Placido Deluca D.O. 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 OPERATION: DE QUERVAIN'S FASCIOTOMY OF THE RIGHT WRIST USING 3.5 LOOP MAGNIFICATION. DESCRIPTION: This 64-year-old male was taken to the Operating Room and placed in a supine position on the operating room table. The right upper extremity was elevated, prepped with Hibiclens, and draped in the usual sterile fashion. Assisted local anesthesia was used and 1% Xylocaine with epinephrine was used to inject into the radial aspect of the right wrist 1 cm proximal to the tip of the radial styloid overlying the first dorsal compartment. Once satisfactory anesthetic was determined we then made a transverse incision and we carefully dissected down to the proximal edge of the first dorsal compartment and the abductor longus was identified and the first dorsal compartment was incised from its proximals to its distal margin under direct vision. The tip of the extensor longus was also identified and found to be in a separate compartment, this was incised as well. The tendons themselves appear to be grossly normal. An extensive amount of tenosynovial fluid was seen within the compartment. Once it was felt to be completely released the wound was irrigated with lactated Ringer's solution, the subcutaneous tissue was closed with 4-0 Vicryl and the skin with 4-0 nylon suture. Sterile dressings were applied and the patient was taken to the Recovery Room in satisfactory condition. GROSS PATHOLOGY: This patient demonstrated De Quervain's stenosing tenosynovitis with the extensor longus tendon being in a separate septated compartment. JOB NUMBER: [id number] MTDD
== END 2019-06-05 11:30 | disposition home or self-care (01) ==
LOC: SUR 07:48
PROVIDERS: ATTEND Orthopaedic Surgery
DX: M65.4 Radial styloid tenosynovitis [de Quervain] (principal); I50.9 Heart failure, unspecified; Z79.01 Long term (current) use of anticoagulants; J44.9 Chronic obstructive pulmonary disease, unspecified; I10 Essential (primary) hypertension; N40.0 Benign prostatic hyperplasia without lower urinary tract symptoms; E78.00 Pure hypercholesterolemia, unspecified; I25.2 Old myocardial infarction; D75.1 Secondary polycythemia; E03.9 Hypothyroidism, unspecified; I42.8 Other cardiomyopathies; Z98.61 Coronary angioplasty status; G47.33 Obstructive sleep apnea (adult) (pediatric); F17.210 Nicotine dependence, cigarettes, uncomplicated
CPT/HCPCS: 80048; J7120